=== PATIENT | male | born 1995 | race Caucasian/White ===

== ENCOUNTER 2018-03-08 19:09 | Emergency (ER) | payer OTHER ==
[2018-03-08 20:33] LABS: URINE BLOOD (Dip) POC Trace-intact (NEGATIVE); URINE GLUCOSE (Dip) POC Negative (NEGATIVE); URINE KETONES (Dip) POC Negative (NEGATIVE); URINE LEUKOCYTE EST (Dip) POC 1+ (NEGATIVE); URINE NITRITE (Dip) POC Negative (NEGATIVE); URINE TOTAL PROTEIN POC Trace (NEGATIVE)
[2018-03-08 20:33] LABS: URINE PH (Dip) POC 7.5 (5.0-8.5)
== END 2018-03-08 21:41 | disposition home or self-care (01) ==
LOC: FTE 19:09
DX: N50.811 Right testicular pain (principal)
CPT/HCPCS: 76870; 81003; 99284-25